=== PATIENT | female | born 1945 | race Caucasian/White ===

== ENCOUNTER → 2024-01-02 08:17 | Outpatient (CLI) | payer OTHER, SELFPAY ==
--- NOTE | 2024-01-02 08:18 | DI.MG.S_ITS ---
BILATERAL DIGITAL SCREENING MAMMOGRAM 3D/2D WITH CAD: 01/02/2024 CLINICAL: Routine screening. Family history of breast cancer. Comparison is made to exams dated: 10/14/2022 mammogram, 02/12/2021 mammogram, and 09/19/2019 mammogram - outside location. Both breasts are heterogeneously dense, which may obscure small masses (category c / 51-75% glandular tissue). Current study was also evaluated with a Computer Aided Detection (CAD) system. There are biopsy clips in the left breast. No significant masses, calcifications, or other findings are seen in either breast. There has been no significant interval change. IMPRESSION: NEGATIVE There is no mammographic evidence of malignancy. A 1 year screening mammogram is recommended. Based on the Tyrer Cuzick model (a risk assessment model) the patient's lifetime risk is 9.2% and her 10 year risk is 0.0%. According to the ACR, ACS, and NCCN guidelines, an annual breast MRI exam along with mammogram is recommended if the patient's lifetime risk is 20% or greater. This exam was interpreted at Station ID: [id number]. NOTE: For mammograms, a report in lay terms will be sent to the patient. Approximately 15% of breast malignancies will not be visualized mammographically. In the management of a palpable breast mass, a negative mammogram must not discourage biopsy of a clinically suspicious lesion. Electronically Signed By: Vi lopez/fredy:01/02/2024 16:13:28 letter sent: Normal Exam ACR BI-RADS Category 1: Negative [id number]
== END ==
PROVIDERS: PCP Family Medicine; Referring Provider Family Medicine; Visit Provider Family Medicine
DX: Z12.31 Encounter for screening mammogram for malignant neoplasm of breast (principal); Z80.3 Family history of malignant neoplasm of breast; R92.333 Mammographic heterogeneous density, bilateral breasts
CPT/HCPCS: 77063; 77067

== ENCOUNTER → 2024-02-21 10:55 | Outpatient (CLI) | payer MEDICARE, SELFPAY ==
[2024-02-21 12:28] LABS: Thyroid Stimulating Hormone 1.79 uIU/mL (0.47-4.68)
== END ==
PROVIDERS: PCP Family Medicine; Referring Provider Family Medicine; Visit Provider Family Medicine
DX: E03.9 Hypothyroidism, unspecified (principal)
CPT/HCPCS: 36415; 84443

== ENCOUNTER → 2024-02-29 10:08 | Outpatient (CLI) | payer MEDICARE, SELFPAY ==
[2024-03-01 10:01] LABS: Fecal Immunochemical Test Negative (Negative)
== END ==
LOC: LAB 10:11
PROVIDERS: PCP Family Medicine; Referring Provider Family Medicine; Visit Provider Family Medicine
DX: Z12.11 Encounter for screening for malignant neoplasm of colon (principal)
CPT/HCPCS: 82274

== ENCOUNTER → 2024-08-27 07:10 | Outpatient (CLI) | payer MEDICARE, SELFPAY ==
[2024-08-27 08:13] LABS: Hemoglobin A1C% w Est Avg Glu 5.5 % (4.0-6.0)
[2024-08-27 08:29] LABS: Alanine Aminotransferase 20 IU/L (<35); Albumin Globulin Ratio 1.3 (1.0-2.8); Alkaline Phosphatase 77 U/L (38-126); Aspartate Aminotransferase 32 IU/L (14-36); BUN Creatinine Ratio 20.7 (6-22); Bilirubin Total 0.9 mg/dL (0.2-1.3); Blood Urea Nitrogen 18 mg/dL (7-17); Calcium 9.7 mg/dL (8.4-10.2); Carbon Dioxide 32 mmol/L (22-32); Chloride 101 mmol/L (98-107); Cholesterol 192 mg/dL (140-199); Estimated Glomerular Filt Rate > 60 mL/min (>60); Glucose 90 mg/dL (80-110); HDL Cholesterol 95 mg/dL (40-60); LDL Cholesterol Calculated 85 mg/dL (<100); Potassium 4.6 mmol/L (3.4-5.1); Sodium 135 mmol/L (137-145); Triglycerides 62 mg/dL (35-150)
[2024-08-27 08:30] LABS: HEMOLYSIS 57 (0-50)
== END ==
PROVIDERS: PCP Family Medicine; Referring Provider Family Medicine; Visit Provider Family Medicine
DX: Z13.1 Encounter for screening for diabetes mellitus (principal); N18.31 Chronic kidney disease, stage 3a; Z13.220 Encounter for screening for lipoid disorders
CPT/HCPCS: 36415; 80053; 80061; 83036

== ENCOUNTER → 2024-12-31 16:20 | Outpatient (CLI) | payer MEDICARE, SELFPAY ==
--- NOTE | 2024-12-31 16:22 | EKG_ITS ---
[place] [address] [address] [place] [address] Test Date: 2024-12-31 Pat Name: Dania Wolf Department: [facility] Room: Gender: Female Accounts Receivable Accountant: AMMY : 1945 Requested By: Order Number: [id number] Reading MD: Wei Caraballo Measurements Intervals [place] Rate: 82 P: ME: QRS: -28 QRSD: 160 T: 140 QT: 396 QTc: 462 Interpretive Statements Atrial fibrillation Left bundle branch block Electronically Signed On 01-02-2025 23:44:31 PST by Wei Caraballo
== END ==
PROVIDERS: PCP Family Medicine; Referring Provider Family Medicine; Visit Provider Family Medicine
DX: I48.0 Paroxysmal atrial fibrillation (principal)
CPT/HCPCS: 93005

== ENCOUNTER → 2025-01-09 08:05 | Outpatient (CLI) | payer MEDICARE, SELFPAY ==
--- NOTE | 2025-01-09 08:06 | DI.MG.S_ITS ---
BILATERAL DIGITAL SCREENING MAMMOGRAM 3D/2D WITH CAD: 01/09/2025 CLINICAL: Routine screening. Family history of breast cancer. Comparison is made to exams dated: 10/14/2022 mammogram, 02/12/2021 mammogram - outside location, and 01/02/2024 mammogram - [facility]. The breasts are heterogeneously dense, which may obscure small masses (category c / 51-75% glandular tissue). Current study was also evaluated with a Computer Aided Detection (CAD) system. There are biopsy clips in the left breast. No significant masses, calcifications, or other findings are seen in either breast. There has been no significant interval change. IMPRESSION: BENIGN There is no mammographic evidence of malignancy. A 1 year screening mammogram is recommended. Based on the Tyrer Cuzick model (a risk assessment model) the patient's lifetime risk is 8.2% and her 10 year risk is 0.0%. According to the ACR, ACS, and NCCN guidelines, an annual breast MRI exam along with mammogram is recommended if the patient's lifetime risk is 20% or greater. This exam was interpreted at Station ID: [id number]. NOTE: For mammograms, a report in lay terms will be sent to the patient. Approximately 15% of breast malignancies will not be visualized mammographically. In the management of a palpable breast mass, a negative mammogram must not discourage biopsy of a clinically suspicious lesion. Electronically Signed By: Fay Ladd M.D., Ph.D. [email or web address]/fredy:01/10/2025 08:46:18 letter sent: Normal Exam ACR BI-RADS Category 2: Benign
== END ==
PROVIDERS: PCP Family Medicine; Referring Provider Family Medicine; Visit Provider Family Medicine
DX: Z12.31 Encounter for screening mammogram for malignant neoplasm of breast (principal); Z80.3 Family history of malignant neoplasm of breast; R92.333 Mammographic heterogeneous density, bilateral breasts
CPT/HCPCS: 77063; 77067

== ENCOUNTER → 2025-04-08 08:05 | Outpatient (CLI) | payer MEDICARE, SELFPAY ==
--- NOTE | 2025-04-08 08:06 | DI.ECHO.S_ITS ---
[facility] : : [address] : : [place] : : [id number] : : Phone: [phone] Echocardiogram Report + + :Name: LORENZO CALIXTO Study Date: 04/08/2025 Height: 69 in : :[facility] ReadingLocation: Weight: 160 lb : : Gender: Female BSA: 1.9 m2 : :: 1945 Age: 79 yrs BP: 147/79 mmHg: :Reason For Study: ATRIAL FIBRILLATION : :Ordering Physician: DAYA, : :KAREL Performed By: Gareth De Los Santos : :Referring: KAREL ENG : + + Interpretation Summary The left ventricle is normal in size. Left ventricular ejection fraction is estimated to be 45 +/- 5%. There is some apical hypokinesis along the septal shwoing some severe hypokinesis and dyssynchrony. The right ventricle is mild to moderately dilated. The right ventricular systolic function is normal. The right ventricular systolic pressure is estimated to be at least 53 mmHg based on an estimated right atrial pressure of 15 mm Hg. The left atrium is severely dilated. The right atrium is moderately dilated. There is mild to moderate mitral regurgitation. There is mild aortic regurgitation. There is moderate to severe tricuspid regurgitation. The aortic root is normal size. Procedure: A two-dimensional transthoracic echocardiogram with color flow and Doppler was performed. The study quality was technically good. There is no prior echocardiogram noted for this patient. The patient was in atrial fibrillation with heart rates between 57-78 bpm during the exam. Left Ventricle: The left ventricle is normal in size. Left ventricular wall thickness is mildly increased. There is no ventricular septal defect visualized. Left ventricular ejection fraction is estimated to be 45 +/- 5%. There is some apical hypokinesis along the septal shwoing some severe hypokinesis and dyssynchrony. Diastolic function could not be accurately assessed due to atrial fibrillation. Right Ventricle: The right ventricle is mild to moderately dilated. The right ventricular systolic function is normal. Atria: The left atrium is severely dilated. The right atrium is moderately dilated. There is no Doppler evidence for an interatrial shunt. Mitral Valve: There is mild mitral annular calcification. The mitral valve leaflets appear mildly thickened, but open well. There is mild to moderate mitral regurgitation. Aortic Valve: The aortic valve is trileaflet. The aortic valve opens well. There is mild aortic regurgitation. Tricuspid Valve: The tricuspid valve leaflets are thin and pliable. There is moderate to severe tricuspid regurgitation. The right ventricular systolic pressure is estimated to be at least 53 mmHg based on an estimated right atrial pressure of 15 mm Hg. Pulmonic Valve: The pulmonic valve leaflets are thin and pliable; valve motion is normal. There is mild pulmonic regurgitation. Great Vessels: The aortic root is normal size. The dimensions of the ascending aorta are normal. The pulmonary artery is normal size. The IVC is dilated (diameter is greater than 2.1 cm) and it collapses less than 50% with a sniff. This suggests a high right atrial pressure of 15 mm Hg. Pericardium/ Pleura There is no pericardial effusion. There is no pleural effusion. MMode/2D Measurements & Calculations LVIDd: 5.2 cm LVOT diam: 1.9 cm LVIDs: 4.2 cm Ao root diam: 3.2 cm FS: 20.3 % asc Aorta Diam: 3.3 cm EPSS: 1.1 cm Ao Arch Diam (Prox Trans): 1.9 cm IVSd: 1.1 cm LVPWd: 1.1 cm LV perez. diameter/BSA (cm/m^2): 2.8 LV sys. diameter/BSA (cm/m^2): 2.2 LA A2 area: 27.8 cm2 RA long axis: 6.5 cm LA A4 area: 25.8 cm2 RA area: 26.2 cm2 LA length (vol): 5.7 cm RA vol: 89.3 ml LA vol: 107.4 ml RA : 47.5 ml/m2 LA vol index: 57.2 ml/m2 IVC diam: 2.0 cm RVD1 (basal): 4.9 cm RVD2 (mid): 3.5 cm TAPSE: 2.2 cm Doppler Measurements & Calculations Ao V2 max: 116.1 cm/sec LVOT [place]: 83.4 cm/sec Ao V2 mean: 85.1 cm/sec LV V1 max P.8 mmHg Ao max P.4 mmHg LV V1 VTI: 16.3 cm Ao mean P.1 mmHg JEREMY(I,D): 2.0 cm2 Ao V2 VTI: 24.0 cm JEREMY(V,D): 2.1 cm2 sev ratio: 0.68 JEREMY indexed to BSA (cm^2/m^2): 1.1 MV E max lake: 59.3 cm/sec TR max lake: 310.4 cm/sec MV A max lake: 33.5 cm/sec TR max P.5 mmHg MV E/A: 1.8 PA V2 max: 88.0 cm/sec Med Peak E' Lake: 3.4 cm/sec PA V2 mean: 60.3 cm/sec E/E' med: 17.5 PA mean P.6 mmHg Lat Peak E' [place]: 7.8 cm/sec PA pr(Accel): 55.0 mmHg E/E' lat: 7.6 E/e' average: 12.5 MV dec time: 0.15 sec SV(LVOT): 47.9 ml Reading Physician:09:29 PM
== END ==
PROVIDERS: PCP Family Medicine; Referring Provider Internal Medicine Cardiovascular Disease; Visit Provider Internal Medicine Cardiovascular Disease
DX: I08.3 Combined rheumatic disorders of mitral, aortic and tricuspid valves (principal); I48.0 Paroxysmal atrial fibrillation; I44.7 Left bundle-branch block, unspecified; I50.32 Chronic diastolic (congestive) heart failure
CPT/HCPCS: 93306

== ENCOUNTER → 2025-05-20 13:47 | Outpatient (CLI) | payer MEDICARE, SELFPAY ==
--- NOTE | 2025-05-20 13:49 | DI.NM.S_ITS ---
PROCEDURE: NM COLBY PERF SPECT R&S PHARM Rest and pharmacological stress myocardial perfusion SPECT with gated imaging and ejection fraction RADIOPHARMACEUTICAL: 26.4 mCi Tc-99m tetrafosmin IV at rest and 26.2 mCi Tc-99m tetrafosmin IV at peak effect of pharmacological stress. [id number]-[id number] was performed. INDICATIONS: PAF, chronic heart failure TECHNIQUE: Radiopharmaceutical was injected at peak stress test, and also at rest. SPECT images were obtained. SPECT myocardial perfusion images were displayed in short axis, horizontal long axis, and vertical long axis views. Gated images were reviewed using Last Guide software. COMPARISON: None. CARDIAC STRESS: A pharmacologic stress test was performed under the supervision of an attending staff, using an infusion of regadenoson 0.4 mg IV. Hemodynamic data: There is normal blood pressure and heart rate response to pharmacologic stress. Symptoms: The patient denied anginal chest pain. EKG: No diagnostic changes of ischemia; no ectopy. FINDINGS: Raw data: There is good myocardial uptake of radiotracer. No significant motion artifacts. Left ventricle function: Gated images demonstrate normal left ventricular wall thickening. No segmental wall motion abnormalities. No transient ischemic dilation; TID is 0.91 (normal less than 1.3). Left ventricle resting end diastolic volume is 126 mL. Left ventricle stress ejection fraction is 69%; normal range is above 45%. Myocardial perfusion: There is a small size, mild to moderate intensity fixed apical anterior and apical anteroseptal wall defect. No reversible perfusion defects. IMPRESSION: Low risk study. No reversible perfusion defects. Small sized, mild to moderate intensity fixed apical anterior and apical anteroseptal wall defect. Mildly dilated LV based on calculated LVEDV with normal function. Dictated by: Pearl Santiago D.O. on 05/23/2025 at 16:38 Approved by: Pearl Santiago D.O. on 05/23/2025 at 16:41
== END ==
LOC: NUCM 13:47
PROVIDERS: PCP Family Medicine; Referring Provider Internal Medicine Cardiovascular Disease; Visit Provider Internal Medicine Cardiovascular Disease
DX: I48.0 Paroxysmal atrial fibrillation (principal); I50.22 Chronic systolic (congestive) heart failure
CPT/HCPCS: 78452; 93017; A9502; J2785

== ENCOUNTER → 2025-07-03 10:06 | Outpatient (CLI) | payer MEDICARE, SELFPAY ==
[2025-07-03 11:22] LABS: Blood Urea Nitrogen 18 mg/dL (7-17); Calcium 9.7 mg/dL (8.4-10.2); Carbon Dioxide 29 mmol/L (22-32); Chloride 102 mmol/L (98-107); Estimated Glomerular Filt Rate > 60 mL/min (>60); Glucose 86 mg/dL (70-99); HEMOLYSIS < 15 (0-50); Potassium 4.8 mmol/L (3.4-5.1); Sodium 139 mmol/L (137-145)
== END ==
PROVIDERS: PCP Family Medicine; Referring Provider Internal Medicine Cardiovascular Disease; Visit Provider Internal Medicine Cardiovascular Disease
DX: I50.20 Unspecified systolic (congestive) heart failure (principal)
CPT/HCPCS: 36415; 80048

== ENCOUNTER 2025-08-27 09:15 | Day surgery (SDC) | payer MEDICARE, SELFPAY ==
--- NOTE | 2025-08-27 | PATH_ITS ---
[facility] Accession Number: [id number] No. of containers..01 Tissue . 01 Material submitted: . colon - COLON,DESCENDING POLYP . 01 Diagnosis: DESCENDING COLON POLYP: Tubular adenoma. KATHE 09/03/2025 0957 Local . 01 Electronically signed: . Magnolia Kitchen MD, Pathologist NPI- [id number] . 01 Gross description: . Received is one formalin-filled container labeled with the patient's name and labeled descending colon polyp, is one fragment of powell, soft tissue which measures 0.3 x 0.2 x 0.2 cm. The specimen is totally submitted in cassette A1. (DC:[id number]) /KATHE 08/30/2025 0532 Local . 01 Pathologist provided ICD-10: D12.4 . 01 CPT . 993443 Specimen Comment: A courtesy copy of this report has been sent to [facility] Pathology Performed at: [address] [facility] [address], [place], [place] [id number] MD Arturo Quintero MD Phone: [phone]
--- NOTE | 2025-08-27 07:51 | P.HP_ITS ---
History of Present Illness History of Present Illness Date Patient Seen: 08/27/25 Time Patient Seen: 07:52 Chief complaint: SDC Narrative: Patient presents for screening colonoscopy today. COUNTS INCLUDE 234 BEDS AT THE [facility] Medical History (Updated 08/27/25 @ 07:53 by Waqas Menjivar MD) Actinic keratosis Diastolic heart failure POLST (Physician Orders for Life-Sustaining Treatment) Mitral regurgitation CKD stage 3a, GFR 45-59 ml/min Breast cancer screening Osteoarthritis of right knee Macular degeneration Hypothyroidism Paroxysmal A-fib Meds Home Medications and Allergies Home Medications ?Medication ?Instructions ?Recorded ?Confirmed ?Type apixaban 5 mg tablet (Eliquis) 5 mg PO BID 12/21/23 History calcium tab PO 08/24/24 07/01/25 His tory qhqx-U7-gjqtzkss-inosit-silicon 300 mg-200 unit-37.5 mg tablet levothyroxine 100 mcg tablet 100 mcg PO DAILY #90 tabs 12/31/24 07/01/25 Rx metoprolol succinate 50 mg 50 mg PO DAILY #90 tabs 02/1907/01/25 Rx tablet,extended release 24 hr mv-mn-folic 200 mcg-vit K 15 cap PO 07/01/25 07/01/25 History mcg-lutein 5 mg-zeaxanthin 1 mg capsule (PreserVision AREDS 2 Plus Multivit) sacubitril 24 mg-valsartan 26 mg 1 tab PO BID 07/01/25 07/01/25 History tablet (Entresto) sodium,potassium,mag sulfates 17.5 See Rx Instructions PO .COMPLEX 08/26/25 Rx gram-3.13 gram-1.6 gram oral soln #354 mL (Suprep Bowel Prep Kit) Allergies Allergy/AdvReac Type Severity Reaction Status Date / Time No Known Drug Allergies Allergy Unverified 07/01/25 14:58 Exam Narrative Exam Narrative: Const General: comfortable Orientation: alert and oriented x3 Resp Effort & Inspection: normal respiratory effort and able to speak in complete sentences Cardio Rate: regular rate GI Palpation: soft (NT) Extrem General: no pedal edema and no calf tenderness Assessment & Plan Assessment and plan (1) Encounter for screening colonoscopy: Status: Acute Plan Colonoscopy, possible biopsy. The risks, benefits and options regarding the procedure were explained to the patient in detail. Risk discussion included but not limited to: bleeding, perforation, unable to reach cecum, missed lesion.? The patient was encouraged to ask questions and they were answered to their satisfaction. The patient understands and is agreeable to proceed. Time-Based Coding :: [TOTAL MINUTES] spent with patient and on the chart (including review of chart, obtaining history, exam, reviewing outside data, placing orders, documenting exam and treatment plan, and counseling patient) on [DATE]. PROFEE Clay Modeler Document charge(s): Yes Charge Codes Inpatient/observation care including admit and discharge same day: [id number]
[2025-08-27 09:51] VITALS: BP 138/86; PULSE 80; RESP 18; TEMP 36.4; O2SAT 100
[2025-08-27] MEDS: LACTATED RINGERS 1,000 ML 42 ML IV (10:08)
--- NOTE | 2025-08-27 10:45 | P.OP.COLON_ITS ---
Operative Date/Time/Diagnoses Date of procedure: 08/27/25 Time of procedure: 10:45 Pre-op diagnosis: Screening colonoscopy Post-op diagnosis: other (Descending colon polyp, internal hemorrhoids) Procedure & Clinicians Study performed: Colonoscopy with polypectomy Same procedure(s) as scheduled: Yes Indications: 80yo F, h/o polyp, on 3 year schedule Surgeon: Waqas Menjivar Anesthesia Type: MAC +/- Procedure Notes SCOAP/Timeout: Performed Procedure in detail: Colonoscopy Patient placed in left lateral recumbent position. Time out was performed. Procedural sedation was administered by anesthesia. Examination began with a thorough inspection of the perianal area. There was no evidence of fissures, fistulae, external hemorrhoids or cutaneous malignancy. The colonoscope was then placed into the rectum and the lumen was insufflated with carbon dioxide. The scope was carefully advanced forward. Ultimately the cecum was intubated and confirmed by identification of the ileocecal valve, the appendiceal orifice and the confluence of the taenia. The scope was then slowly withdrawn examining the colon thoroughly in all directions. In the rectum, retroflexion of the scope was performed for inspection of the distal rectum and anal canal. ?Significant colonoscopy findings: ?1. Quality of the preparation-good, [place] 2-3, improved with irrigation/suction ?2. Benign appearing, 3mm sessile polyp in descending colon, removed with cold snare and retrieved for pathology 3. Incidental note of significant internal hemorrhoids, 3 large columns, no active edema or bleeding 4. Diverticulosis in sigmoid and ascending colons, several impacted with stool Findings: divertiulosis, internal hemorrhoids and polyp(s) Specimen(s): other (polyp) Post-procedure Recommendations: Colonoscopy in 3 years Plan for aftercare: PACU then home Follow up: as needed Disposition: PACU
--- NOTE | 2025-08-27 10:56 | SUR.OPER ---
Glasses in labelled black case followed patient from preop to Endo to PACU.
[2025-08-27 11:09] VITALS: BP 92/55; PULSE 77; RESP 16; TEMP 36.2; O2SAT 98
[2025-08-27 11:13] VITALS: BP 89/53; PULSE 77; RESP 15; O2SAT 95
[2025-08-27 11:17] VITALS: BP 94/55; PULSE 75; RESP 15; O2SAT 96
[2025-08-27 11:20] VITALS: BP 102/59; PULSE 75; RESP 17; TEMP 37; O2SAT 98
[2025-08-27 11:25] VITALS: BP 117/60; PULSE 74; RESP 23; TEMP 36.7; O2SAT 98
== END 2025-08-27 11:48 | disposition home or self-care (01) ==
PROVIDERS: PCP Family Medicine; Referring Provider Surgery; Visit Provider Surgery
PROC: 0DJD8ZZ Inspection of Lower Intestinal Tract, Via Natural or Artificial Opening Endoscopic (ICD-10-PCS; CPT 45378; principal; 2025-08-27 10:15)
DX: Z12.11 Encounter for screening for malignant neoplasm of colon (principal); K57.30 Diverticulosis of large intestine without perforation or abscess without bleeding; K64.8 Other hemorrhoids; D12.4 Benign neoplasm of descending colon
CPT/HCPCS: 45385; J2704

== ENCOUNTER → 2025-11-01 11:26 | Outpatient (CLI) | payer MEDICARE, SELFPAY ==
[2025-11-01 12:30] LABS: Blood Urea Nitrogen 18 mg/dL (7-17); Calcium 9.4 mg/dL (8.4-10.2); Carbon Dioxide 29 mmol/L (22-32); Chloride 100 mmol/L (98-107); Estimated Glomerular Filt Rate > 60 mL/min (>60); Glucose 101 mg/dL (70-99); HEMOLYSIS < 15 (0-50); Potassium 4.3 mmol/L (3.4-5.1); Sodium 138 mmol/L (137-145)
== END ==
PROVIDERS: PCP Family Medicine; Referring Provider Internal Medicine Cardiovascular Disease; Visit Provider Internal Medicine Cardiovascular Disease
DX: I50.20 Unspecified systolic (congestive) heart failure (principal)
CPT/HCPCS: 36415; 80048

== ENCOUNTER → 2025-11-25 09:09 | Outpatient (CLI) | payer MEDICARE, SELFPAY ==
--- NOTE | 2025-11-25 09:10 | DI.ECHO.S_ITS ---
[facility] : : [address] : : [place] : : [id number] : : Phone: [phone] Echocardiogram Report + + :Name: LORENZO CALIXTO Study Date: 11/25/2025 Height: 69 in : :[facility] ReadingLocation: Weight: 165 lb : : Gender: Female BSA: 1.9 m2 : :: 1945 Age: 80 yrs BP: 129/67 mmHg: :Reason For Study: LBBB : :Ordering Physician: DAYA, : :KAREL Performed By: Gareth De Los Santos : :Referring: KAREL ENG : + + Interpretation Summary The left ventricle is normal in size. Left ventricular systolic function is mildly reduced. The ejection fraction is estimated to be 40-45%. There is a significant dyssynchronous contraction pattern, consistent with a conduction abnormality. Diastolic function could not be accurately assessed due to atrial fibrillation. The right ventricle is moderately dilated. The right ventricular systolic function is normal. The right ventricular systolic pressure is estimated to be at least 39 mmHg based on an estimated right atrial pressure of 8 mm Hg. The left atrium is moderately dilated. The right atrium is moderate to severely dilated. There is mild aortic regurgitation. There is moderate to severe tricuspid regurgitation. The aortic root is normal size. Procedure: A two-dimensional transthoracic echocardiogram with color flow and Doppler was performed. The study quality was technically good. Comparison is made with the echocardiogram of 04/08/2025. The heart rate ranged between 58-82 bpm during the study. Left Ventricle: The left ventricle is normal in size. Left ventricular wall thickness is mildly increased. There is no ventricular septal defect visualized. A false chord is noted (normal variant). Left ventricular systolic function is mildly reduced. The ejection fraction is estimated to be 40-45%. There is a significant dyssynchronous contraction pattern, consistent with a conduction abnormality. Diastolic function could not be accurately assessed due to atrial fibrillation. Right Ventricle: The right ventricle is moderately dilated. The right ventricular systolic function is normal. Atria: The left atrium is moderately dilated. The right atrium is moderate to severely dilated. There is no Doppler evidence for an interatrial shunt. Mitral Valve: The mitral valve leaflets appear mildly thickened. There is mild to moderate mitral annular calcification. There is mild mitral regurgitation. Aortic Valve: The aortic valve is trileaflet. The aortic valve opens well. There is mild aortic regurgitation. Tricuspid Valve: The tricuspid valve leaflets are thin and pliable. There is moderate to severe tricuspid regurgitation. The right ventricular systolic pressure is estimated to be at least 39 mmHg based on an estimated right atrial pressure of 8 mm Hg. Pulmonic Valve: The pulmonic valve is normal in structure and function. There is mild pulmonic regurgitation. Great Vessels: The aortic root is normal size. The dimensions of the ascending aorta are normal. The pulmonary artery is normal size. The IVC is of normal diameter and collapses less than 50% with a sniff. This suggests a right atrial pressure of 8 mm Hg. Pericardium/ Pleura There is no pericardial effusion. There is no pleural effusion. MMode/2D Measurements & Calculations LVIDd: 5.0 cm LVOT diam: 1.9 cm LVIDs: 3.9 cm Ao root diam: 3.3 cm FS: 21.2 % asc Aorta Diam: 3.4 cm EPSS: 0.70 cm Ao Arch Diam (Prox Trans): 1.9 cm IVSd: 1.3 cm LVPWd: 1.2 cm LV perez. diameter/BSA (cm/m^2): 2.6 LV sys. diameter/BSA (cm/m^2): 2.0 LA A2 area: 22.7 cm2 RA long axis: 6.2 cm LA A4 area: 23.6 cm2 RA area: 27.4 cm2 LA length (vol): 5.2 cm RA vol: 102.5 ml LA vol: 86.9 ml RA : 53.9 ml/m2 LA vol index: 45.6 ml/m2 IVC diam: 1.9 cm TAPSE: 2.1 cm Doppler Measurements & Calculations Ao V2 max: 109.6 cm/sec LVOT [place]: 65.4 cm/sec Ao V2 mean: 79.0 cm/sec LV V1 max P.7 mmHg Ao max P.8 mmHg LV V1 VTI: 13.4 cm Ao mean P.7 mmHg JEREMY(I,D): 1.9 cm2 Ao V2 VTI: 20.1 cm JEREMY(V,D): 1.7 cm2 sev ratio: 0.66 JEREMY indexed to BSA (cm^2/m^2): 0.99 MV E max lake: 59.7 cm/sec TR max lake: 276.6 cm/sec MV A max lake: 22.6 cm/sec TR max P.6 mmHg MV E/A: 2.6 PA V2 max: 78.8 cm/sec Med Peak E' [place]: 2.9 cm/sec PA V2 mean: 49.8 cm/sec E/E' med: 20.4 PA mean P.1 mmHg Lat Peak E' [place]: 4.9 cm/sec PA pr(Accel): 56.7 mmHg E/E' lat: 12.2 E/e' average: 16.3 MV dec time: 0.19 sec SV(LVOT): 38.1 ml Reading Physician:04:56 PM
== END ==
LOC: ECHO 09:09
PROVIDERS: PCP Family Medicine; Referring Provider Internal Medicine Cardiovascular Disease; Visit Provider Internal Medicine Cardiovascular Disease
DX: I08.3 Combined rheumatic disorders of mitral, aortic and tricuspid valves (principal); I50.20 Unspecified systolic (congestive) heart failure; I44.7 Left bundle-branch block, unspecified
CPT/HCPCS: 93306